=== PATIENT | male | born 2000 | race American Indian/Alaskan Native ===

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

== ENCOUNTER 2018-01-08 18:34 | Emergency (ER) | payer SELFPAY ==
[2018-01-08 18:59] VITALS: BP 140/75
[2018-01-08] MEDS ORDERED: ROCEPHIN IM ONE (19:52)
[2018-01-08] MEDS ORDERED: XYLOCAINE 1% MPF 5 mL INFILTRATI ONE (19:52)
[2018-01-08] MEDS ORDERED: ZITHROMAX PO ONE (19:52)
--- NOTE | 2018-01-08 19:56 | Emergency Department Report ---
ED Male HPI - General Chief complaint: Urogenital-Male Stated complaint: STD CHECK Time Seen by Provider: 01/08/18 19:51 Source: patient Mode of arrival: Ambulatory Limitations: No Limitations - History of Present Illness Initial comments: 17-year-old -[place] male presents to the emergency room stating that he received a text today from former partner that they have chlamydia. Patient denies any painful urination denies any discharge no fever no chills no abdominal pain. Patient has no past medical history currently takes no medications on a daily basis and has no known drug allergies. Complaint: other (informed that he has been exposed to chlamydia) - Related Data Allergies Allergy/AdvReac Type Severity Reaction Status Date / Time No Known Allergies Allergy Unverified 09/13/17 17:35 ED Review of Systems ROS: Stated complaint: STD CHECK Other details as noted in HPI Comment: All other systems reviewed and negative ED Past Medical Hx - Past Medical History Previous Medical History?: Yes Hx Hypertension: Yes Additional medical history: elevated CK - Surgical History Past Surgical History?: Yes Additional Surgical History: intubated x 1 - Social History Smoking Status: Never Smoker Substance Use Type: Marijuana ED Physical Exam - General Limitations: No Limitations General appearance: alert, in no apparent distress - Head Head exam: Present: atraumatic, normocephalic - Cardiovascular Cardiovascular Exam: Present: regular rate, normal rhythm. Absent: systolic murmur, diastolic murmur, rubs, gallop - Extremities Exam Extremities exam: Present: normal inspection - Neurological Exam Neurological exam: Present: alert, oriented X3 - Psychiatric Psychiatric exam: Present: normal affect, normal mood - Skin Skin exam: Present: warm, dry, intact, normal color. Absent: rash ED Course Vital Signs 01/08/18 18:56 Temperature 97.9 F Pulse Rate 83 Respiratory 18 Rate Blood Pressure 140/75 O2 Sat by Pulse 100 Oximetry ED Medical Decision Making - Medical Decision Making Patient has been evaluated by this provider in fast track. Patient will be given Rocephin 250 mg IM as well as a azithromycin 1 g by mouth. Discussed patient he needs to go to the health department to get tested for all STDs. And that will be given to patient upon discharge. Critical care attestation.: If time is entered above; I have spent that time in minutes in the direct care of this critically ill patient, excluding procedure time. ED Disposition Clinical Impression: Possible exposure to STD Disposition: DC-01 TO HOME OR SELFCARE Is pt being admited?: No Does the pt Need Aspirin: No Condition: Stable Instructions: Sexually Transmitted Diseases in Adolescents (ED), Safe Sex (ED) , Chlamydia Infection (ED) Additional Instructions: Please follow up in the health department I have listed several below for your convenience. Please do not have intercourse for next 2 weeks until you have been tested and treated. Referrals: Health Dept. Adult Care [Outside] - 3-5 Days Health Dept. Adolescent [Outside] - 3-5 Days [facility] [Outside] - 3-5 Days [facility] Dept [Outside] - 3-5 Days [facility] Dept[facility] [Outside] - 3-5 Days [facility] [Outside] - 3-5 Days
== END 2018-01-08 20:40 | disposition home or self-care (01) ==
LOC: ED 18:34
DX: Z20.2 Contact with and (suspected) exposure to infections with a predominantly sexual mode of transmission (principal); I10 Essential (primary) hypertension; F12.10 Cannabis abuse, uncomplicated
CPT/HCPCS: 96372; 99282; J0696